=== PATIENT | female | born 1960 | race Caucasian/White ===

== ENCOUNTER 2021-01-06 09:46 | Inpatient (IN) | payer BC, OTHER ==
[~2021-01-06] VITALS: Ht 175.3 cm; Wt 55.4 kg
[~2021-01-06 09:46] MED LIST: ADVAIR; ALBUPOW26; HYDR-4833; IBU600T; LABETALOL; LORA10CA7; TRAM-297
[2021-01-06] MEDS ORDERED: SODIUM CHLORIDE 0.9% 500 ML IVB ONE (10:15)
[2021-01-06] MEDS ORDERED: SODIUM CHLORIDE 0.9% 1,000 ML IV ONE (10:15)
[2021-01-06] MEDS ORDERED: HYDROmorphone HCL 2 MG/ML VL IV ONE ×3 (10:45→22:45)
[2021-01-06] MEDS ORDERED: PROMETHAZINE HCL 25 MG/ML 1ML IV ONE ×4 (10:45→22:45)
[2021-01-06 11:55] LABS: Basophils # (auto) 0 10 ^3/uL (0-0.2); Basophils % (auto) 0.3 % (0.0-2.0); Eosinophils # (auto) 0.1 10 ^3/uL (0-0.8); Eosinophils % (auto) 0.6 % (0.0-7.0); Hematocrit 36.6 % (36.0-46.0); Hemoglobin 12.3 g/dL (12.2-16.2); Lymphocytes # (auto) 1.8 10 ^3/uL (0.4-5.4); Lymphocytes % (auto) 12.7 % (10.0-50.0); Mean Corpuscular Hemoglobin 31.3 pg (28.0-32.0); Mean Corpuscular Hgb Conc. 33.5 g/dL (32.0-36.0); Mean Corpuscular Volume 93.4 fL (80.0-100.0); Monocytes % (auto) 6.9 % (0.0-12.0); Neutrophils # (auto) 11.1 10 ^3/uL (1.6-8.6); Neutrophils % (auto) 79.5 % (37.0-80.0); Nucleated Red Blood Cells % 0.1 %; Red Blood Cells 3.92 10^6/uL (4.0-5.20); Red Cell Distribution Width 17.9 % (11.8-14.3)
[2021-01-06 12:08] LABS: Albumin 3.1 g/dL (3.4-5.0); Calcium 8.6 mg/dL (8.5-10.1); Magnesium 2.4 mg/dL (1.6-2.6); Potassium 3.4 mmol/L (3.5-5.1)
[2021-01-06 12:11] LABS: Bilirubin, Total 1.3 mg/dL (0.2-1.0); Total Protein 7.5 g/dL (6.4-8.2)
[2021-01-06] MEDS ORDERED: HYDROmorphone HCL 2 MG/ML VL IM ONE (20:15)
[2021-01-07] MEDS ORDERED: HYDROmorphone HCL 2 MG/ML VL IV ONE ×3 (02:00→09:15)
[2021-01-07] MEDS ORDERED: PROMETHAZINE HCL 25 MG/ML 1ML IV ONE (02:00)
[2021-01-07] MEDS ORDERED: HYDROcodone-ACET 5/325MG TAB PO PRN (03:00)
[2021-01-07] MEDS ORDERED: ONDANSETRON HCL 4 MG/2 ML VIAL IV PRN (03:00)
[2021-01-07] MEDS ORDERED: ALBUTEROL SULF 2.5 MG/0.5ML(0.5%) NEB SOLN NEB PRN (03:00)
[2021-01-07] MEDS ORDERED: ACETAMINOPHEN 325 MG TAB PO PRN (03:00)
[2021-01-07] MEDS ORDERED: TEMAZEPAM 15 MG CAP PO PRN (03:00)
[2021-01-07] MEDS: MORPHINE SULFATE 4 MG/ML SYR/VIAL IV PRN ×4 (04:58→19:58)
[2021-01-07] MEDS ORDERED: HALOPERIDOL LACTATE 5 MG/ML INJ VIAL IM ONE (05:30)
[2021-01-07 06:08] LABS: Urine Bacteria MANY /hpf (None Seen); Urine Blood 1+ /uL (Negative); Urine Mucus FEW (None Seen); Urine Specific Gravity 1.017 (1.001-1.035); Urine WBC 17 /hpf (0 - 5)
[2021-01-07 09:09] VITALS: BP 164/81
[2021-01-07] MEDS: cefTRIAXone 1GM/50ML D5W 50 ML IV SCH (09:19)
[2021-01-07] MEDS: PANTOPRAZOLE 40 MG TAB PO SCH (09:20)
[2021-01-07 13:00] VITALS: BP 159/85
[2021-01-07] MEDS ORDERED: HYDROmorphone HCL 2 MG/ML VL IV PRN (14:00)
[2021-01-07] MEDS ORDERED: HYDROcodone-ACET 10/325MG TAB PO PRN ×2 (14:00→16:15)
[2021-01-07] MEDS ORDERED: MORPHINE SULFATE 4 MG/ML SYR/VIAL IV PRN (15:15)
[2021-01-07] MEDS ORDERED: METH5TAB2 PO (15:17)
[2021-01-07] MEDS ORDERED: MORP1TAB14 PO (15:17)
[2021-01-07] MEDS ORDERED: SENN1TAB14 PO (15:17)
[2021-01-07] MEDS ORDERED: DEX4T PO (15:17)
[2021-01-07] MEDS ORDERED: LORA-655 PO (15:17)
[2021-01-07] MEDS ORDERED: PANC3600 OR (15:17)
[2021-01-07] MEDS ORDERED: LORazepam 0.5 MG TAB PO PRN (15:30)
[2021-01-07] MEDS ORDERED: SENNA 8.6 MG TAB PO PRN (15:30)
[2021-01-07 16:35] VITALS: BP 129/76
[2021-01-07] MEDS: PANCREATIC ENZYMES 4200 UNIT CAP PO SCH ×2 (18:00→18:12)
[2021-01-07] MEDS: LORazepam 0.5 MG TAB PO SCH ×2 (18:11→21:50)
[2021-01-07] MEDS: LIDOCAINE 5% TOPICAL PATCH TOP SCH (18:11)
[2021-01-07] MEDS: MORPHINE SULF 15mg ER tab PO SCH ×2 (18:11→21:51)
[2021-01-07] MEDS: MORPHINE SULF 30 mg ER tab PO SCH ×2 (18:12→21:51)
[2021-01-07] MEDS: DexAMETHasone 4 MG TAB PO SCH (21:50)
[2021-01-07] MEDS: DOCUSATE SOD 100 MG CAP PO SCH (21:57)
[2021-01-07 22:13] VITALS: BP 141/90
[2021-01-08] MEDS: LORazepam 0.5 MG TAB PO SCH ×6 (01:53→21:05)
[2021-01-08] MEDS: MORPHINE SULFATE 4 MG/ML SYR/VIAL IV PRN ×6 (01:59→20:12)
[2021-01-08 04:35] VITALS: BP 126/70
[2021-01-08 04:58] LABS: Basophils # (auto) 0 10 ^3/uL (0-0.2); Basophils % (auto) 0.3 % (0.0-2.0); Eosinophils # (auto) 0 10 ^3/uL (0-0.8); Hematocrit 36.5 % (36.0-46.0); Hemoglobin 13.2 g/dL (12.2-16.2); Lymphocytes # (auto) 0.4 10 ^3/uL (0.4-5.4); Lymphocytes % (auto) 4.1 % (10.0-50.0); Mean Corpuscular Hemoglobin 32.8 pg (28.0-32.0); Mean Corpuscular Hgb Conc. 36.1 g/dL (32.0-36.0); Mean Corpuscular Volume 90.9 fL (80.0-100.0); Monocytes # (auto) 0.2 10 ^3/uL (0-1.3); Monocytes % (auto) 2.3 % (0.0-12.0); Neutrophils # (auto) 10.2 10 ^3/uL (1.6-8.6); Neutrophils % (auto) 93.3 % (37.0-80.0); Nucleated Red Blood Cells % 0.2 %; Red Blood Cells 4.01 10^6/uL (4.0-5.20); White Blood Cell 10.9 10^3/uL (4.4-10.8)
[2021-01-08 05:41] LABS: Albumin 2.7 g/dL (3.4-5.0); Calcium 8.7 mg/dL (8.5-10.1); Potassium 3.6 mmol/L (3.5-5.1)
[2021-01-08 05:46] LABS: BUN/Creatinine Ratio 41.5; Bilirubin, Total 1.3 mg/dL (0.2-1.0); Total Protein 7.3 g/dL (6.4-8.2)
[2021-01-08] MEDS: PANCREATIC ENZYMES 4200 UNIT CAP PO SCH ×3 (08:00→18:00)
[2021-01-08] MEDS: cefTRIAXone 1GM/50ML D5W 50 ML IV SCH (08:54)
[2021-01-08] MEDS: MORPHINE SULF 30 mg ER tab PO SCH ×2 (08:54→21:06)
[2021-01-08] MEDS: DexAMETHasone 4 MG TAB PO SCH ×2 (08:55→21:05)
[2021-01-08] MEDS: PANTOPRAZOLE 40 MG TAB PO SCH (08:55)
[2021-01-08] MEDS: DOCUSATE SOD 100 MG CAP PO SCH ×2 (08:56→21:05)
[2021-01-08] MEDS: MORPHINE SULF 15mg ER tab PO SCH ×2 (08:56→21:05)
[2021-01-08 09:00] VITALS: BP 109/73
[2021-01-08] MEDS: LIDOCAINE 5% TOPICAL PATCH TOP SCH (10:45)
[2021-01-08] MEDS ORDERED: HYDROmorphone HCL 2 MG/ML VL IV PRN (11:15)
[2021-01-08] MEDS: LACTULOSE 20Gm/30ML SOLN PO SCH ×2 (12:00→17:28)
[2021-01-08 13:00] VITALS: BP 115/73
[2021-01-08 17:02] VITALS: BP 120/77
[2021-01-08 20:00] VITALS: BP 92/52
[2021-01-09] MEDS: MORPHINE SULFATE 4 MG/ML SYR/VIAL IV PRN ×5 (00:52→12:36)
[2021-01-09] MEDS: LORazepam 0.5 MG TAB PO SCH ×3 (01:54→09:29)
[2021-01-09 03:38] VITALS: BP 136/83
[2021-01-09] MEDS: LACTULOSE 20Gm/30ML SOLN PO SCH ×3 (05:53→12:00)
[2021-01-09] MEDS: cefTRIAXone 1GM/50ML D5W 50 ML IV SCH (08:21)
[2021-01-09] MEDS: PANCREATIC ENZYMES 4200 UNIT CAP PO SCH ×2 (08:21→12:35)
[2021-01-09 08:35] VITALS: BP 111/71
[2021-01-09] MEDS: PANTOPRAZOLE 40 MG TAB PO SCH (09:28)
[2021-01-09] MEDS: DOCUSATE SOD 100 MG CAP PO SCH (09:28)
[2021-01-09] MEDS: MORPHINE SULF 15mg ER tab PO SCH (09:29)
[2021-01-09] MEDS: DexAMETHasone 4 MG TAB PO SCH (09:29)
[2021-01-09] MEDS: MORPHINE SULF 30 mg ER tab PO SCH (09:30)
[2021-01-09] MEDS ORDERED: LIDOCAINE 5% TOPICAL PATCH TOP SCH (11:15)
== END 2021-01-09 13:15 | disposition hospice, home (50) | DRG 181 ==
LOC: ER 09:46 → EDBD 09:46 → OVERFLOW 01-07 02:52 → CENTRAL 01-07 11:48
PROVIDERS: ADMIT Nurse Practitioner; ATTEND Internal Medicine
DX: C78.00 Secondary malignant neoplasm of unspecified lung (principal); C25.9 Malignant neoplasm of pancreas, unspecified; C79.51 Secondary malignant neoplasm of bone; N39.0 Urinary tract infection, site not specified; R65.10 Systemic inflammatory response syndrome (SIRS) of non-infectious origin without acute organ dysfunction; C78.7 Secondary malignant neoplasm of liver and intrahepatic bile duct; E44.1 Mild protein-calorie malnutrition; Z68.1 Body mass index [BMI] 19.9 or less, adult; Z51.5 Encounter for palliative care; Z66 Do not resuscitate; E87.6 Hypokalemia; E03.9 Hypothyroidism, unspecified; J44.9 Chronic obstructive pulmonary disease, unspecified; I10 Essential (primary) hypertension; Z20.822 Contact with and (suspected) exposure to COVID-19; F17.210 Nicotine dependence, cigarettes, uncomplicated; K56.41 Fecal impaction; Z96.641 Presence of right artificial hip joint; R74.01 Elevation of levels of liver transaminase levels; R74.8 Abnormal levels of other serum enzymes; Z85.07 Personal history of malignant neoplasm of pancreas; Z90.49 Acquired absence of other specified parts of digestive tract; Z88.1 Allergy status to other antibiotic agents; Z88.2 Allergy status to sulfonamides; Z88.8 Allergy status to other drugs, medicaments and biological substances
CPT/HCPCS: 36415; 71045; 74176; 80053; 81001; 83690; 83735; 85025; 87426; 93005; 96361; 96365; 96372; 96375; 96376; G0378; J0696; J2405